=== PATIENT | male | born 1935 | race Caucasian/White ===

== ENCOUNTER → 2017-11-17 | Outpatient (CLI) | payer MEDICARE, BC ==
[2017-07-09 22:05] VITALS: BP 150/97
[~2017-11-17] MED LIST: ASPIRIN 32325 MG/TAB PO; ASPIRIN ADULT L81 M3 PO; ATORVASTATIN CA10 MG PO; CHILDREN'S ASPI81 M1 PO; CLOPIDOGREL75 MG PO; COUMADIN PO; DEMADEX 20MG20 M1 PO
== END ==
LOC: RAD 07:56
DX: N40.0 Benign prostatic hyperplasia without lower urinary tract symptoms (principal); N32.9 Bladder disorder, unspecified; K42.9 Umbilical hernia without obstruction or gangrene; K57.30 Diverticulosis of large intestine without perforation or abscess without bleeding
CPT/HCPCS: Q9967

== ENCOUNTER 2019-04-03 13:30 | Outpatient (RCR) | payer MEDICARE, BC ==
[2017-07-09 22:05] VITALS: BP 150/97
== END 2019-04-08 ==
LOC: PT
DX: R53.1 Weakness (principal); R26.89 Other abnormalities of gait and mobility

== ENCOUNTER 2019-04-22 14:08 | Outpatient (RCR) | payer MEDICARE, BC ==
[2017-07-09 22:05] VITALS: BP 150/97
== END 2019-04-22 14:30 | disposition still patient (30) ==
LOC: PT 14:08
DX: R26.89 Other abnormalities of gait and mobility (principal); R53.1 Weakness

== ENCOUNTER 2019-08-28 14:00 | Outpatient (RCR) | payer MEDICARE, BC ==
[2017-07-09 22:05] VITALS: BP 150/97
== END 2019-08-28 14:30 | disposition still patient (30) ==
LOC: PT 14:00
DX: M79.604 Pain in right leg (principal)

== ENCOUNTER 2020-06-09 11:15 | Outpatient (RCR) | payer MEDICARE, BC ==
[2017-07-09 22:05] VITALS: BP 150/97
== END 2020-06-09 12:00 | disposition still patient (30) ==
LOC: PT 11:15
DX: R29.898 Other symptoms and signs involving the musculoskeletal system (principal); R53.1 Weakness

== ENCOUNTER 2020-06-30 13:45 | Outpatient (RCR) | payer MEDICARE, BC ==
[2017-07-09 22:05] VITALS: BP 150/97
== END 2020-06-30 14:30 | disposition still patient (30) ==
LOC: PT 13:45
DX: R53.1 Weakness (principal); R29.898 Other symptoms and signs involving the musculoskeletal system

== ENCOUNTER → 2020-12-16 | Outpatient (CLI) | payer MEDICARE, BC ==
[2017-07-09 22:05] VITALS: BP 150/97
== END ==
LOC: RAD 07:30
DX: M16.11 Unilateral primary osteoarthritis, right hip (principal); M19.011 Primary osteoarthritis, right shoulder; M19.012 Primary osteoarthritis, left shoulder

== ENCOUNTER → 2021-03-01 | Day surgery (SDC) | payer MEDICARE, BC | END | disposition home or self-care (01) | LOC: MSO 10:35 | DX: L72.0 Epidermal cyst (principal); E78.5 Hyperlipidemia, unspecified; J44.9 Chronic obstructive pulmonary disease, unspecified; M81.0 Age-related osteoporosis without current pathological fracture; F17.210 Nicotine dependence, cigarettes, uncomplicated; I73.9 Peripheral vascular disease, unspecified; Z79.02 Long term (current) use of antithrombotics/antiplatelets; Z95.820 Peripheral vascular angioplasty status with implants and grafts; Z79.899 Other long term (current) drug therapy; Z79.82 Long term (current) use of aspirin ==